=== PATIENT | female | born 1985 | race Caucasian/White ===

== ENCOUNTER 2021-03-15 08:56 | Outpatient (CLI) | payer BC ==
[2021-03-15 17:25] LABS: SARS-CoV-2 PCR by NAA Not Detected (NotDetected)
== END 2021-03-15 08:57 | disposition home or self-care (01) ==
LOC: CSHLAB 08:56
PROVIDERS: ATTEND Obstetrics & Gynecology
DX: Z01.812 Encounter for preprocedural laboratory examination (principal); Z20.822 Contact with and (suspected) exposure to COVID-19
CPT/HCPCS: U0003; U0005

== ENCOUNTER 2021-03-18 17:49 | Inpatient (IN) | payer BC ==
[2021-03-18] MEDS ORDERED: NS w/ Oxytocin 30 units 500 ML IV SCH ×2 (18:02)
[2021-03-18] MEDS ORDERED: Ondansetron PF 4 MG/2 ML Vial IVP PRN (18:02)
[2021-03-18] MEDS ORDERED: NS w/ Oxytocin 30 units 500 ML IVPB SCH (18:02)
[2021-03-18] MEDS ORDERED: Diphenoxylate HCl/Atropine Tablet PO PRN ×2 (18:02)
[2021-03-18] MEDS ORDERED: Zolpidem Tartrate 5 MG TAB PO PRN (18:02)
[2021-03-18] MEDS ORDERED: Butorphanol Tartrate 1 MG/ML VIAL SLOW IVP PRN (18:02)
[2021-03-18] MEDS ORDERED: Promethazine HCl 25 MG/ML VIAL IM PRN (18:02)
[2021-03-18] MEDS ORDERED: HYDROcodone/Acetaminophen 5/325 mg Tablet PO PRN ×2 (18:02)
[2021-03-18] MEDS ORDERED: Ibuprofen 800 MG TAB PO PRN (18:02)
[2021-03-18] MEDS ORDERED: Lidocaine 1% (PF) 30 ML VIAL SC PRN (18:02)
[2021-03-18] MEDS ORDERED: Misoprostol 200 MCG TAB PR PRN (18:02)
[2021-03-18] MEDS ORDERED: Docusate 100 MG CAP PO PRN (18:02)
[2021-03-18] MEDS ORDERED: Acetaminophen 500 MG TAB PO PRN (18:02)
[2021-03-18 18:36] VITALS: BMI 29.5
[2021-03-18] MEDS: Misoprostol 100 MCG TAB VAG SCH (19:15)
[2021-03-18 19:37] LABS: Hemoglobin 10.6 g/dL (12.0-15.5); Mean Corpuscular HGB CONC 34.4 g/dL (32.0-36.0); Mean Corpuscular Hemoglobin 30.9 pg (27.0-33.0); Mean Corpuscular Volume 89.8 fl (81.6-98.3); Mean Platelet Volume 10.3 fl (7.4-10.4); Platelet Count 199 10x3/uL (150-450); RBC Distribution Width 13.3 % (11.5-14.5); Red Blood Cell (RBC) Count 3.43 10x6/uL (3.90-5.03); White Blood Cell (WBC) Count 8.6 10x3/uL (3.5-10.5)
[2021-03-18 20:34] LABS: Syphilis Antibody Nonreactive (Nonreactive); Syphilis Antibody Index 0.04 S/CO (<1.00 Non-Reactive)
[2021-03-18 20:35] LABS: HIV (1/2) Antibody/Antigen Non-Reactive (NonReactive); HIV 1/2 INDEX 0.05 S/CO (<1.00); Hep B Surf Ag Non-Reactive S/CO (NonReactive)
[2021-03-18 20:45] LABS: HBSAg Index 0.17 S/CO (0-0.99)
[2021-03-19] MEDS ORDERED: Butorphanol Tartrate 1 MG/ML VIAL ONE (00:06)
[2021-03-19] MEDS ORDERED: Levothyroxine Sodium 25 MCG TAB PO SCH (06:00)
[2021-03-19] MEDS: Lactated Ringer's 1,000 ML IV SCH ×3 (07:30→07:42)
[2021-03-19] MEDS: Misoprostol 100 MCG TAB VAG SCH ×3 (07:31→16:15)
[2021-03-19] MEDS ORDERED: Fentanyl 2 mcg/Bup 0.1% Cadd 100 ML ONE ×2 (09:01→16:12)
[2021-03-19] MEDS ORDERED: Lactated Ringer's 500 ML IV PRN (09:50)
[2021-03-19] MEDS ORDERED: Hydrocerin (Eucerin) Cream 120 gm Jar TOP PRN (09:50)
[2021-03-19] MEDS ORDERED: diphenhydrAMINE 50 MG/ML VIAL IVP PRN (09:50)
[2021-03-19] MEDS ORDERED: Ondansetron PF 4 MG/2 ML Vial IVP PRN ×2 (09:50→18:53)
[2021-03-19] MEDS ORDERED: Promethazine HCl 25 MG/ML VIAL IM PRN (09:50)
[2021-03-19] MEDS ORDERED: ePHEDrine Sulfate 50 MG/10 ML VIAL SLOW IVP PRN (09:50)
[2021-03-19] MEDS ORDERED: Acetaminophen 325 MG TAB PO PRN (09:50)
[2021-03-19] MEDS ORDERED: Naloxone HCl 0.4 mg/ml Vial IVP PRN ×2 (09:50)
[2021-03-19] MEDS ORDERED: Fentanyl 2 mcg/Bupivacaine 0.1% Cassette 100 ML EPIDURAL SCH (10:00)
[2021-03-19] MEDS ORDERED: Communication Order-Pharmacy FS PRN (10:00)
[2021-03-19] MEDS: hydrALAZINE 20 MG/ML VIAL SLOW IVP PRN ×2 (13:20→15:54)
[2021-03-19] MEDS ORDERED: Labetalol HCl 100 MG/20 ML VIAL SLOW IVP PRN (16:06)
[2021-03-19] MEDS ORDERED: Labetalol HCl 100 MG/20 ML VIAL ONE (16:12)
[2021-03-19] MEDS ORDERED: Fentanyl 100 MCG/2 ML VIAL ONE (16:45)
[2021-03-19] MEDS ORDERED: Boostrix 0.5 ML (Tdap) VIAL IM ONE (18:53)
[2021-03-19] MEDS ORDERED: Misoprostol 200 MCG TAB VAG PRN (18:53)
[2021-03-19] MEDS ORDERED: Benzocaine-Menthol 82.5 ML CAN TOP PRN (18:53)
[2021-03-19] MEDS ORDERED: Zolpidem Tartrate 5 MG TAB PO PRN (18:53)
[2021-03-19] MEDS ORDERED: Milk Of Magnesia 30 ML UDCUP PO PRN (18:53)
[2021-03-19] MEDS ORDERED: hydrALAZINE 20 MG/ML VIAL SLOW IVP PRN (18:53)
[2021-03-19] MEDS ORDERED: Bisacodyl 10 MG SUPP PR PRN (18:53)
[2021-03-19] MEDS ORDERED: Preparation H Ointment 28 GM TUBE PR PRN (18:53)
[2021-03-19] MEDS ORDERED: diphenhydrAMINE 25 MG CAP PO PRN (18:53)
[2021-03-19] MEDS ORDERED: Lanolin Ointment 7 GM TUBE TOP PRN (18:53)
[2021-03-19] MEDS ORDERED: Acetaminophen/Codeine 30-300mg Tablet PO PRN ×2 (18:53)
[2021-03-19] MEDS ORDERED: CEFAZOLIN 2 GM in Premix Bag 1 BAG IVPB SCH (20:45)
[2021-03-19] MEDS: Ibuprofen 800 MG TAB PO SCH (23:14)
[2021-03-19] MEDS: Docusate Calcium (SURFAK) 240 MG CAP PO SCH (23:14)
[2021-03-20] MEDS: Ibuprofen 800 MG TAB PO SCH ×4 (06:21→21:26)
[2021-03-20] MEDS: Lactated Ringer's 1,000 ML IV SCH (07:26)
[2021-03-20] MEDS: Misoprostol 100 MCG TAB VAG SCH (07:26)
[2021-03-20] MEDS: Ferrous Sulfate 325 MG TAB PO SCH ×2 (07:28→14:18)
[2021-03-20 07:35] LABS: Hemoglobin 11.6 g/dL (12.0-15.5); Mean Corpuscular HGB CONC 34.5 g/dL (32.0-36.0); Mean Corpuscular Hemoglobin 30.4 pg (27.0-33.0); Mean Platelet Volume 10.5 fl (7.4-10.4); Platelet Count 204 10x3/uL (150-450); RBC Distribution Width 13.5 % (11.5-14.5); Red Blood Cell (RBC) Count 3.82 10x6/uL (3.90-5.03); White Blood Cell (WBC) Count 18.5 10x3/uL (3.5-10.5)
[2021-03-20] MEDS: Docusate Calcium (SURFAK) 240 MG CAP PO SCH ×2 (08:33→21:26)
[2021-03-20] MEDS: Prenatal Vitamin 1 TAB PO SCH (08:33)
[2021-03-20] MEDS ORDERED: Acetaminophen 325 MG TAB PO PRN (12:19)
[2021-03-20] MEDS ORDERED: Levothyroxine Sodium 75 MCG TAB PO SCH (12:30)
[2021-03-20] MEDS ORDERED: Hydrochlorothiazide 25 MG TAB PO SCH (23:15)
[2021-03-20] MEDS ORDERED: Losartan Potassium 50 MG TAB PO SCH (23:15)
[2021-03-21] MEDS: Ibuprofen 800 MG TAB PO SCH ×2 (05:29→14:09)
[2021-03-21] MEDS ORDERED: Levothyroxine Sodium 75 MCG TAB PO SCH (06:00)
[2021-03-21] MEDS: Ferrous Sulfate 325 MG TAB PO SCH ×2 (07:21→15:46)
[2021-03-21 08:01] VITALS: BP 145/98; TEMP 98.3
[2021-03-21] MEDS: Docusate Calcium (SURFAK) 240 MG CAP PO SCH (08:40)
[2021-03-21] MEDS: Prenatal Vitamin 1 TAB PO SCH (08:40)
[2021-03-21] MEDS ORDERED: Hydrochlorothiazide 25 MG TAB PO SCH (21:00)
[2021-03-21] MEDS ORDERED: Losartan Potassium 50 MG TAB PO SCH (21:00)
== END 2021-03-21 18:00 | disposition home or self-care (01) | DRG 807 ==
LOC: CSHLD 17:49 → CSHPP 03-19 22:06
PROVIDERS: ADMIT Obstetrics & Gynecology; ATTEND Obstetrics & Gynecology
PROC: 10E0XZZ Delivery of Products of Conception, External Approach (ICD-10-PCS; principal; 2021-03-18)
DX: O13.4 Gestational [pregnancy-induced] hypertension without significant proteinuria, complicating childbirth (principal); Z37.0 Single live birth; Z20.822 Contact with and (suspected) exposure to COVID-19; Z3A.38 38 weeks gestation of pregnancy
CPT/HCPCS: 36415; 36416; 51702; 85027; 86780; 86850; 86900; 86901; 87340; 87389; J0360; J0595; J0690; J2405; J2590; J3010; J7120; U0003; U0005

== ENCOUNTER 2021-03-23 19:53 | Inpatient (IN) | payer BC ==
[2021-03-23] MEDS ORDERED: Lorazepam 2 MG/ML VIAL ONE (20:13)
[2021-03-23 20:23] LABS: #Basophils 0.1 10x3/uL (0.0-0.2); #Eosinphils 0.4 10x3/uL (0.0-0.5); #Monocytes 0.4 10x3/uL (0.0-1.1); %Basophils 0.7 % (0.0-2.0); %Eosinophils 4.3 % (0.0-6.0); %Lymphocytes 23.8 % (18.0-47.0); %Monocytes 4.5 % (0.0-10.0); %Neutrophils 65.9 % (40.0-75.0); Hemoglobin 10.6 g/dL (12.0-15.5); Mean Corpuscular HGB CONC 34.3 g/dL (32.0-36.0); Mean Corpuscular Hemoglobin 30.7 pg (27.0-33.0); Mean Corpuscular Volume 89.6 fl (81.6-98.3); Mean Platelet Volume 9.9 fl (7.4-10.4); Platelet Count 274 10x3/uL (150-450); RBC Distribution Width 12.9 % (11.5-14.5); Red Blood Cell (RBC) Count 3.45 10x6/uL (3.90-5.03); White Blood Cell (WBC) Count 9.1 10x3/uL (3.5-10.5)
[2021-03-23 20:38] LABS: ALT (SGPT) 26 U/L (8-55); AST (SGOT) 27 U/L (5-34); Albumin 3.5 g/dL (3.5-5.0); Alkaline Phosphatase 125 U/L (40-110); Anion Gap 13 mmol/L (10-20); BUN (Urea Nitrogen) 10 mg/dL (7.0-18.7); Bilirubin, Total 0.2 mg/dL (0.2-1.2); Calc. Creatinine Clearance 0 mL/min (70-130); Calcium 8.9 mg/dL (7.8-10.44); Carbon Dioxide 22 mmol/L (22-29); Chloride 109 mmol/L (98-107); Globulin 2.6 g/dL (2.4-3.5); Glucose 97 mg/dL (70-105); Potassium 3.6 mmol/L (3.5-5.1); Protein, Total 6.1 g/dL (6.0-8.3); Sodium 140 mmol/L (136-145)
[2021-03-23 20:58] LABS: Bilirubin Neg (Negative); Blood, Urine 250 (Negative); Clarity Clear (Clear); Glucose, Urine (Dipstick) Normal (Negative); Ketone, Urine Negative (Negative); Leukocyte Negative (Negative); Nitrite Negative (Negative); Protein, Urine (Dipstick) Negative (Neg-Trace); Specific Gravity, Urine 1.005 (1.002-1.036); Urobilinogen Normal mg/dL (Less than 2)
[2021-03-23 21:05] LABS: Bacteria/HPF Rare-Few HPF (None Seen); RBC/HPF 0-3 HPF (0-3); Squamous Epithelial 0-3 HPF (0-3); WBC/HPF None Seen HPF (0-3)
[2021-03-23] MEDS ORDERED: hydrALAZINE 20 MG/ML VIAL ONE (21:05)
[2021-03-23] MEDS ORDERED: Magnesium 2 GM/50 ML BAG (IN WATER) ONE (21:05)
[2021-03-23] MEDS ORDERED: Promethazine HCl 25 MG/ML VIAL IM PRN (21:15)
[2021-03-23] MEDS ORDERED: hydrALAZINE 20 MG/ML VIAL SLOW IVP PRN (21:15)
[2021-03-23] MEDS ORDERED: Magnesium Sulfate 20 GM/WATER 500 ML BAG IVPB SCH (21:15)
[2021-03-23] MEDS ORDERED: Ondansetron PF 4 MG/2 ML Vial IVP PRN (21:15)
[2021-03-23] MEDS ORDERED: Calcium Gluconate 4.6 MEQ in Sodium Chloride 0.9% 100 ML IVPB PRN (21:15)
[2021-03-23] MEDS ORDERED: Labetalol HCl 100 MG/20 ML VIAL SLOW IVP PRN (22:25)
[2021-03-23] MEDS: Magnesium Sulfate 20 gm/500 ml 20 GM/500 ML BAG IVPB SCH (22:25)
[2021-03-23] MEDS ORDERED: Cyclobenzaprine 10 MG TAB PO PRN (22:25)
[2021-03-23 22:36] VITALS: BMI 29.5
[2021-03-23 22:36] LABS: Magnesium 1.7 mg/dL (1.6-2.6)
[2021-03-23 22:57] LABS: Hemoglobin 10.8 g/dL (12.0-15.5); Mean Corpuscular HGB CONC 34.7 g/dL (32.0-36.0); Mean Corpuscular Hemoglobin 30.7 pg (27.0-33.0); Mean Corpuscular Volume 88.4 fl (81.6-98.3); Mean Platelet Volume 9.8 fl (7.4-10.4); Platelet Count 272 10x3/uL (150-450); Red Blood Cell (RBC) Count 3.52 10x6/uL (3.90-5.03); White Blood Cell (WBC) Count 9.3 10x3/uL (3.5-10.5)
[2021-03-23 23:07] LABS: ALT (SGPT) 25 U/L (8-55); AST (SGOT) 26 U/L (5-34); Albumin 3.5 g/dL (3.5-5.0); Alkaline Phosphatase 124 U/L (40-110); Anion Gap 13 mmol/L (10-20); BUN (Urea Nitrogen) 9 mg/dL (7.0-18.7); Bilirubin, Total 0.3 mg/dL (0.2-1.2); Calc. Creatinine Clearance 171 mL/min (70-130); Calcium 8.7 mg/dL (7.8-10.44); Carbon Dioxide 21 mmol/L (22-29); Chloride 109 mmol/L (98-107); Globulin 2.9 g/dL (2.4-3.5); Glucose 101 mg/dL (70-105); Potassium 3.2 mmol/L (3.5-5.1); Protein, Total 6.4 g/dL (6.0-8.3); Sodium 140 mmol/L (136-145)
[2021-03-24] MEDS ORDERED: Labetalol HCl 100 MG/20 ML VIAL SLOW IVP PRN (00:23)
[2021-03-24] MEDS: Labetalol HCl 100 MG/20 ML VIAL SLOW IVP PRN ×2 (00:25→04:42)
[2021-03-24] MEDS: Acetaminophen 500 MG TAB PO PRN (00:36)
[2021-03-24] MEDS: Zolpidem Tartrate 5 MG TAB PO PRN (00:55)
[2021-03-24] MEDS: Lorazepam 2 MG/ML VIAL SLOW IVP PRN (00:55)
[2021-03-24] MEDS: Ibuprofen 800 MG TAB PO PRN ×3 (04:56→21:38)
[2021-03-24] MEDS ORDERED: Labetalol HCl 100 MG/20 ML VIAL SLOW IVP SCH ×2 (06:30→07:00)
[2021-03-24] MEDS: hydrALAZINE 10 MG TAB PO SCH ×3 (07:29→18:55)
[2021-03-24] MEDS: Magnesium Sulfate 20 gm/500 ml 20 GM/500 ML BAG IVPB SCH ×2 (07:31→17:48)
[2021-03-24] MEDS: ALPRAZolam 0.5 MG TAB PO PRN (09:37)
[2021-03-24] MEDS: Labetalol 100 MG TAB PO SCH ×2 (09:42→15:08)
[2021-03-24] MEDS ORDERED: Levothyroxine Sodium 25 MCG TAB PO SCH (19:00)
[2021-03-25] MEDS: ALPRAZolam 0.5 MG TAB PO PRN (00:11)
[2021-03-25] MEDS: Labetalol 100 MG TAB PO SCH ×4 (00:27→20:57)
[2021-03-25] MEDS: hydrALAZINE 10 MG TAB PO SCH ×4 (02:05→20:12)
[2021-03-25] MEDS: Levothyroxine Sodium 25 MCG TAB PO SCH (06:07)
[2021-03-25] MEDS: Amlodipine 5 MG TAB PO SCH (09:03)
[2021-03-25] MEDS: Ibuprofen 800 MG TAB PO PRN (09:17)
[2021-03-25] MEDS: ALPRAZolam 0.25 MG TAB PO PRN (20:12)
[2021-03-25] MEDS: Zolpidem Tartrate 5 MG TAB PO PRN (20:57)
[2021-03-26] MEDS: hydrALAZINE 10 MG TAB PO SCH ×2 (00:52→06:03)
[2021-03-26] MEDS: Ibuprofen 800 MG TAB PO PRN (00:58)
[2021-03-26] MEDS ORDERED: hydrALAZINE 20 MG/ML VIAL SLOW IVP SCH (02:00)
[2021-03-26] MEDS: Lorazepam 2 MG/ML VIAL SLOW IVP PRN (02:11)
[2021-03-26] MEDS: Levothyroxine Sodium 25 MCG TAB PO SCH (06:04)
[2021-03-26] MEDS: Amlodipine 5 MG TAB PO SCH (08:09)
[2021-03-26] MEDS: Labetalol 100 MG TAB PO SCH ×3 (08:09→21:30)
[2021-03-26] MEDS ORDERED: Amlodipine 5 MG TAB PO SCH (09:30)
[2021-03-26] MEDS: ALPRAZolam 0.25 MG TAB PO PRN (16:46)
[2021-03-26] MEDS: Acetaminophen 500 MG TAB PO PRN (19:37)
[2021-03-26] MEDS: Zolpidem Tartrate 5 MG TAB PO PRN (23:16)
[2021-03-27] MEDS: ALPRAZolam 0.25 MG TAB PO PRN (03:41)
[2021-03-27] MEDS: Ibuprofen 800 MG TAB PO PRN (03:41)
[2021-03-27] MEDS: Levothyroxine Sodium 25 MCG TAB PO SCH (05:59)
[2021-03-27 07:53] VITALS: BP 138/75; TEMP 97.8
[2021-03-27] MEDS: Labetalol 100 MG TAB PO SCH (08:19)
[2021-03-27] MEDS ORDERED: Amlodipine 10 MG TAB PO SCH (09:00)
== END 2021-03-27 09:30 | disposition home or self-care (01) | DRG 776 ==
LOC: CSHERS 19:53 → CSHLD 22:13 → CSHPP 03-25 06:42
PROVIDERS: ADMIT Obstetrics & Gynecology; ATTEND Obstetrics & Gynecology
DX: O11.5 Pre-existing hypertension with pre-eclampsia, complicating the puerperium (principal); O99.355 Diseases of the nervous system complicating the puerperium; Z20.822 Contact with and (suspected) exposure to COVID-19; O99.285 Endocrine, nutritional and metabolic diseases complicating the puerperium; E03.9 Hypothyroidism, unspecified; O99.345 Other mental disorders complicating the puerperium; F41.9 Anxiety disorder, unspecified; G43.909 Migraine, unspecified, not intractable, without status migrainosus; Z79.890 Hormone replacement therapy; Z79.899 Other long term (current) drug therapy
CPT/HCPCS: 36415; 71045; 80053; 81003; 81015; 83735; 84484; 85025; 86850; 86900; 86901; 93005; 96365; 96375; J0360; J2060; J3475